=== PATIENT | male | born 1930 | race Caucasian/White ===

== ENCOUNTER 2017-09-27 06:17 | Day surgery (SDC) | payer OTHER ==
[2017-09-27 07:22] VITALS: BMI 24.5
[2017-09-27] MEDS ORDERED: LIDOCAINE 1%/EPI 1:100000 (20 ML MULTI DOSE VIAL) ONE (07:41)
[2017-09-27] MEDS ORDERED: PROPOFOL 20 ML ONE ×2 (08:14)
[2017-09-27] MEDS ORDERED: MIDAZOLAM HCL 2 MG/2 ML SINGLE DOSE VIAL ONE (08:14)
[2017-09-27] MEDS ORDERED: SUCCINYLCHOLINE CHLORIDE 200 MG/10 ML VIAL ONE (08:14)
[2017-09-27] MEDS ORDERED: ONDANSETRON 4 MG/2 ML VIAL ONE (08:24)
[2017-09-27] MEDS ORDERED: DEXAMETHASONE SOD PHOSPHATE 4 MG/1 ML VIAL ONE (08:24)
[2017-09-27] MEDS ORDERED: ceFAZolin SODIUM 1 GM VIAL ONE (08:24)
[2017-09-27] MEDS ORDERED: ONDANSETRON 4 MG/2 ML VIAL IVPUSH PRN ×2 (09:42→10:45)
[2017-09-27] MEDS ORDERED: oxyCODONE HCL 5 MG TABLET PO PRN (09:42)
[2017-09-27 10:04] VITALS: TEMP 97.7
[2017-09-27] MEDS ORDERED: KETOROLAC TROMETHAMINE 30 MG/1 ML VIAL IVPUSH PRN (10:45)
[2017-09-27] MEDS ORDERED: DEXTROSE 5%-0.45% SALINE 1,000 ML IV SCH (10:45)
[2017-09-27 11:00] VITALS: BP 134/67; PULSE 88
--- NOTE | 2017-09-27 19:23 | OP ---
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 PRIMARY SURGEON: Taisha Hernandez M.D. PHOTO EDITOR: Paul Douglass PROCEDURE: A radical soft tissue excision of part of patient's left ear and cartilage with a plastic surgery reconstruction of the left ear with a separate incisional biopsy of the right ear, again with the plastic surgery reconstruction of the right ear. PRIMARY SURGEON FOR EAR RECONSTRUCTION: Taisha Fine M.D., with his first beater, Hailey Bearden ANESTHESIA: Local with IV sedation. COMPLICATIONS: There were no complications. 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 At that time, he had a positive right axillary lymph node and underwent lymph node dissection with / positive nodes. He later developed a left chest wall recurrence and had undergone a left axillary lymph node dissection and incision of his left chest wall lesion, which was 2.1 cm. He has remained disease-free from the melanoma but did have prostate cancer as well as forehead basal cell carcinoma excised in 2009. He now presented with an ulcerating lesion in the left cartilaginous area of the left ear. Biopsy showed squamous cell carcinoma. There was also another suspicious lesion seen on the tip of the right ear. Radical wide excision of the left ear squamous cell carcinoma was recommended with a separate excisional biopsy of the right ear lesion. The patient was brought in for the procedure on September 27, 2017. In the holding area, site verification is made, and informed consent was obtained. He was brought into the operating room, laid on the OR table in the supine position. Venodynes were placed on the lower extremities. He received a gram of Ancef prior to incision. Both ears were sterilely prepped and draped in the usual fashion. The patient was given IV sedation. Then 1% lidocaine was given around the cartilaginous left ear, and a separate ring block was given around the left ear with a separate injection in the external canal to block the vagus nerve. A wedge resection widely around the ulcerating squamous cell carcinoma was then taken of the left ear with at least 1 cm margins around the squamous cell carcinoma grossly. The specimen was oriented with a long lateral, short superior suture. At this point, plastic surgery scrubbed in to perform the left ear reconstruction as I moved to the right side. On the right side, I excised a lesion probably only about 2 x 2 cm as a rectangular excision on the tip of the right ear, mainly just soft tissue all the way down to the cartilage, however. Again, hemostasis was achieved. The specimen was oriented with a long lateral, short superior suture, and sent to pathology as right ear excisional biopsy. A separate superolateral excision was undertaken. Such a lesion was felt to be close on that side, and that was oriented with a suture marking the biopsy cavity side. Hemostasis was achieved. This wound was left open for the plastic surgeon to reconstruct after he finishes the reconstruction on the left ear. Both reconstructions were performed primarily, and the patient tolerated the procedure well with minimal blood loss. The patient will be recovered postoperatively and discharged home the same day. He will follow up in the office in one week for formal wound pathology check. All sponge, needle counts are correct at the end of the case, and estimated blood loss was minimal. TAISHA HERNANDEZ M.D. [id number]
--- NOTE | 2017-09-28 06:55 | OP ---
DATE OF OPERATION: 09/27/2017 SURGEON: Taisha Fine MD CONSULTING PSYCHOLOGIST SURGEON: Zahra Rodríguez PA-C PREOPERATIVE DIAGNOSIS: Acquired deformity of head and neck, tumor extirpation, right and left ears. POSTOPERATIVE DIAGNOSIS: Acquired deformity of head and neck, tumor extirpation, right and left ears. OPERATIVE PROCEDURE: 1. Right ear reconstruction utilizing advanced flap closure. 2. Left total reconstruction of defect, left ear after large excisional extirpation. OPERATIVE INDICATIONS: The patient of Dr. Taisha Ferrari was brought to the operating room for surgical excision of a left ear rim and posterior aspect of the cartilage skin tumor. This required full-thickness excision of a large wedge of tissue on the left ear removing approximately more than 1/3 of the total volume of the ear. Reconstruction was planned, discussed with the patient preoperatively. He agreed to the planned procedure. The right ear also had a lesion along the pinna border, which was extirpated by Dr. Palencia and reconstruction with advancement flaps in a tubular fashion was carried out. OPERATIVE PROCEDURE IN DETAIL: Patient was take to the operating room by Dr. Palencia. A combined dictation was dictated with him. He will dictate the extirpation of the tumors bilaterally. The patient was placed on the operating room table in supine position, both arms were placed down to sides, and the entire head and neck region was prepped with ChloraPrep solution especially over both ears which showed the lesions. Local 1% lidocaine anesthesia was injected into the ear itself, and then, Dr. Palencia performed extirpation of the tumor with full-thickness excision of the ear on the left side of approximately 1/3 of the total volume and right side along the pinna border measuring approximately 4 cm in length. When the tumor excision was accomplished, I began my part of the procedure with a reconstruction. The left ear reconstruction required extensive debridement of cartilage with Burows triangles. The triangles were removed from the base of the ear cartilage in order to allow reconstruction. Hemostasis was meticulously obtained throughout, and the cartilage was then approximated using 4-0 chromic sutures in interrupted fashion from medial to lateral advancing the cartilage together on the left ear. The second closure of the skin and subcutaneous tissues with advancements and total reconstruction were carried out on both the anterior and posterior surfaces of the left ear in complex fashion. This layered closure was then accomplished, was closed with Dermabond and Steri-Strips, and attention was turned to the left ear. The tubular flap, both superiorly and inferiorly, were planned out on both sides of the defect, advanced, and closed upon themselves with multiple layers of sutures with 5-0 nylon and 5-0 plain catgut sutures. Good shape and contour was seen on both ears. The patient tolerated the procedure well. He was awakened and transferred to the recovery room in satisfactory condition. TAISHA FINE M.D. CLOVIS/[id number]
--- NOTE | 2017-10-02 14:04 | PATH ---
Surgical Pathology Report Patient Name: WANDA CRUZ [facility]. Rec. #: [id number] /Age/Gender: 1930 (Age: 86) / M Account: [id number] Location: [facility] AMBULATORY Taken: 09/27/2017 Received: 09/27/2017 Reported: 10/02/2017 Physicians: Je Palencia M.D. Specimen(s) Received A: LEFT EAR EXCISION B: RIGHT EAR EXCISIONAL BIOPSY C: RIGHT EAR SUPERIOR MARGIN Clinical History Left ear squamous cell carcinoma, right ear lesion Final Diagnosis A. EAR, LEFT, EXCISION: SQUAMOUS CELL CARCINOMA, MODERATELY DIFFERENTIATED WITH EXTENSIVE ULCERATION. CARCINOMA MEASURES 1.7 CM IN GREATEST HORIZONTAL EXTENT (GROSS MEASUREMENT) WITH A MAXIMAL THICKNESS OF UP TO 0.5 CM. SURGICAL MARGINS ARE UNINVOLVED BY CARCINOMA; CARCINOMA IS AT 3 MM FROM THE CLOSEST (SUPERIOR) MARGIN. CARCINOMA ABUTS CARTILAGE BUT DOES NOT INVADE CARTILAGE (IN THE MAIN SPECIMEN); SEPARATE ADDITIONAL PORTIONS OF CARTILAGE WITH NO PATHOLOGIC FINDINGS. NO LYMPHOVASCULAR INVASION IS IDENTIFIED. PERINEURAL INVASION IS IDENTIFIED. B. EAR, RIGHT, EXCISIONAL BIOPSY: SQUAMOUS CELL CARCINOMA, MODERATELY DIFFERENTIATED, EXTENDING TO THE DEEP TRANSECTED TISSUE MARGIN AND FOCALLY CLOSE (< 1 MM) THE SUPERIOR MARGIN. NO LYMPHOVASCULAR INVASION IS IDENTIFIED. C. EAR, RIGHT, SUPERIOR LATERAL MARGIN, EXCISION: SQUAMOUS CELL CARCINOMA, MODERATELY DIFFERENTIATED, EXTENDING TO THE NEW INKED MARGIN. Electronically Signed Renee Regalado M.D. Gross Description A. Received in formalin labeled "left ear excision," is a 3.0 x 3.0 x 0.6 cm triangular ear excision with a short suture marking the superior margin and a long suture marking the lateral aspect of the specimen, per the surgeon. The epidermal surface displays a 1.7 x 1.6 cm ulcerated lesion at 0.4 cm from the superior margin and 0.7 cm from the opposing margin. The superior margin is inked blue and the opposing margin is inked red. Also received is of the same container are 2 preciado, irregular, unoriented portions of cartilage measuring 0.5 x 0.3 x 0.1 cm and 1.1 x 0.3 x 0.1 cm. Metal Sander sections are submitted in 6 cassettes as follows: 1-3-lesion to superior margin; 4-5-lesion to opposing margin; 6-separately received undesignated portions of tissue. B. Received in formalin labeled "right ear excisional biopsy," is a 1.2 x 1.0 x 0.2 cm preciado, irregular portion of skin with a short suture marking the superior aspect and a long suture marking the lateral aspect of the specimen, per the surgeon. The specimen is inked as follows: superior , blue; inferior, green; lateral ,red; medial yellow; transected deep margin, black. The specimen is serially sectioned from superior to inferior. The specimen is entirely and sequentially submitted in 4 cassettes with the superior margin in cassette 1 and the inferior margin in cassette 4. C. Received in formalin labeled "right ear superior lateral margin," is a 1.0 x 0.3 x 0.1 cm preciado, irregular portion of skin with a suture marking the biopsy cavity side, per the surgeon. The new margin is inked blue and the specimen is serially sectioned. The specimen is entirely submitted in one cassette. 09/28/201709/28/2017
== END 2017-09-27 10:50 | disposition home or self-care (01) ==
LOC: FASU 06:17
PROVIDERS: ATTEND Surgery Surgical Oncology
PROC: 09B Ear, Nose, Sinus, Excision (ICD-10-PCS; 2017-09-27)
PROC: 0HX3XZZ Transfer Left Ear Skin, External Approach (ICD-10-PCS; 2017-09-27)
PROC: 0JX10ZB Transfer Face Subcutaneous Tissue and Fascia with Skin and Subcutaneous Tissue, Open Approach (ICD-10-PCS; principal; 2017-09-27 08:33)
PROC: 09B10ZX Excision of Left External Ear, Open Approach, Diagnostic (ICD-10-PCS; 2017-09-27 08:33)
DX: C44.229 Squamous cell carcinoma of skin of left ear and external auricular canal (principal); C44.222 Squamous cell carcinoma of skin of right ear and external auricular canal; H61.113 Acquired deformity of pinna, bilateral; Z85.46 Personal history of malignant neoplasm of prostate; Z85.820 Personal history of malignant melanoma of skin; Z85.828 Personal history of other malignant neoplasm of skin
CPT/HCPCS: 88305-TC; 88307-TC

== ENCOUNTER 2018-01-17 10:42 | Day surgery (SDC) | payer OTHER ==
[2018-01-10 12:23] VITALS: BMI 24.5
--- NOTE | 2018-01-15 11:26 | HP ---
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 In August 2017 , patient underwent excision of bilateral ear lesions that were c/w squamous cell. The left WE was c/w negative surgical margins and the right showed extension to the deep transected margin and 1 mm to the superior margin. Patient is now presenting for reexcision of positive margin with reconstruction. History Source: Patient Limitations to Obtaining History: No Limitations - Past Medical History Cardiovascular: Yes: AFIB, HTN Pulmonary: Yes: Pneumonia Renal/: Yes: Cancer Heme/Onc: Yes: Cancer (malignant melanoma 1999 and 2003. prostate cancer basal cell of forehead 2009 squamous cell of left ear 05/2017 squamous cell of right ear 08/2017) - Past Surgical History Additional Past Surgical History: WE of malignant melanoma with bilateral SNBx of axilla and right axillary LN dissection.(1999) Left axillary LN dissection 11/2003 Left axillary chest wall excision 06/2004. Excision of basal cell from forehead 2009 WE of left ear (squamous cell 08/2017) Right exc bx (squamous cell with positive margins 08/2017) - Smoking History Smoking history: Former smoker Have you smoked in the past 12 months: No Aproximately how many cigarettes per day: 40 If you are a former smoker, when did you quit?: AGE 31 - Alcohol/Substance Use Hx Alcohol Use: No Home Medications - Allergies Allergies/Adverse Reactions: Allergies Allergy/AdvReac Type Severity Reaction Status Date / Time No Known Allergies Allergy Verified 01/10/18 12:14 - Home Medications Home Medications: Ambulatory Orders Apixaban [Eliquis] 5 mg PO BID 09/03/17 Family Disease History - Family Disease History Family Disease History: CA: Brother (prostate and laryngeal cancer) Review of Systems - Review of Systems Constitutional: reports: No Symptoms Cardiovascular: reports: No Symptoms Respiratory: reports: No Symptoms Physical Examination Constitutional: Yes: Well Nourished, Calm HENT: Yes: Other (Ears with well healed incisions without discharge or erythema) Problem List - Problems (1) Squamous cell carcinoma of right ear Code(s): C44.222 - SQUAMOUS CELL CARCINOMA SKIN/ R EAR AND EXTERNAL AURIC CANAL Assessment/Plan Plan: Wide excision of right ear with reconstruction
[2018-01-17] MEDS ORDERED: ONDANSETRON 4 MG/2 ML VIAL IVPUSH PRN (11:15)
[2018-01-17] MEDS ORDERED: DEXTROSE 5%-0.45% SALINE 1,000 ML IV SCH (11:15)
[2018-01-17] MEDS ORDERED: KETOROLAC TROMETHAMINE 30 MG/1 ML VIAL IVPUSH ONE (11:15)
[2018-01-17] MEDS ORDERED: MIDAZOLAM HCL 2 MG/2 ML SINGLE DOSE VIAL ONE (13:05)
[2018-01-17] MEDS ORDERED: LIDOCAINE 1%/EPI 1:100000 (20 ML MULTI DOSE VIAL) ONE (13:12)
[2018-01-17] MEDS ORDERED: ONDANSETRON 4 MG/2 ML VIAL ONE (13:28)
[2018-01-17] MEDS ORDERED: BACITRACIN 3.5 GM OPTHALMIC OINT TUBE ONE (13:37)
[2018-01-17 14:10] VITALS: TEMP 97.8
--- NOTE | 2018-01-17 15:04 | OP ---
DATE OF OPERATION: 01/17/2018 SURGEON: Taisha Fine MD MANAGER TRANSPORT SURGEON: Taisha Palencia MD PREOPERATIVE DIAGNOSIS: Acquired right ear deformity status post excision of squamous cell carcinoma, right ear. POSTOPERATIVE DIAGNOSIS: Acquired right ear deformity status post excision of squamous cell carcinoma, right ear. OPERATIVE PROCEDURE: Complex repair and reconstruction of the right ear after large wedge excision of squamous cell carcinoma, right ear. OPERATIVE INDICATION: The patient is an 87-year-old man who was brought to the operating room by Dr. Taisha Palencia for surgical extirpation of a squamous cell carcinoma of the right ear. A lesion was seen in the upper third border of the rim of the right ear, extending down to the cartilage area and needed to be re-excised from previous removals. A large wedge resection was planned and carried out. After the patient was prepped and draped in the usual fashion for ear surgery, 1% local lidocaine anesthesia with 1:100,000 epinephrine was injected into the tissues of the ear resection itself and along the anterior and posterior border of the ear as well as the wesly. At this point, Dr. Taisha Palencia performed a wedge excision of a large section of the mid-portion of the right pinna, down through skin, through the subcutaneous tissue, down to the underlying cartilage, and full-thickness anterior, posterior and cartilage were removed and sent for pathologic diagnosis. Upon completing the resection, I began my portion of the operation. At this point, a complex reconstruction was carried out. Using sharp dissection, the cartilage at the base of the wound, two Burow triangles were removed in the cartilage in order to correct the ear deformity, and then, an advancement closure was carried out in multiple layers. The tissues were advanced upon themselves, and using 4-0 chromic sutures in an interrupted fashion, the cartilage on the upper and lower borders of the pie-shaped wedge were reapproximated from the head towards the exterior and posterior part of the ear. Multiple sutures were placed to approximate the cartilage, and then, the posterior surface of the skin and subcutaneous tissue, after hemostasis, was also closed. Because of the patient's advanced age, 5-0 plain catgut suture was used for the skin and subcutaneous tissue. Multiple sutures were placed into the borders of the ear for alignment, and then, a running 5-0 catgut suture was run along the posterior edge of the ear itself. Anteriorly, the skin and subcutaneous tissue were advanced and closed upon itself using 5-0 plain catgut sutures in an interrupted fashion. Multiple sutures were placed under optical magnification of 2.5 power to realign the cartilage and skin on both sides of the ear. After cleaning the wound, Dermabond and Steri-Strips dressing were placed over the ear itself, and good shape and contour were seen with no evidence of bleeding at this point. He tolerated the procedure well. He went to the recovery area in satisfactory condition and tolerated the procedure well. TAISHA FINE M.D. CLOVIS/[id number]
[2018-01-17 15:29] VITALS: BP 124/76; PULSE 82
--- NOTE | 2018-01-17 19:33 | OP ---
DATE OF OPERATION: 01/17/2018 PREOPERATIVE DIAGNOSIS: Right ear squamous cell carcinoma. POSTOPERATIVE DIAGNOSIS: Right ear squamous cell carcinoma. PROCEDURE: Wide malignant excision of right external ear with reconstruction by plastic surgery. PRIMARY SURGEON: Taisha Palencia MD Primary surgeon for the ear reconstruction is Dr. Taisha Fine. ANESTHESIA: Local with IV sedation. There were no complications. Briefly, the patient is an 87-year-old white male who has a history of a malignant melanoma of the chest wall, which I excised back in July of 2000, at which time he had positive nodes in the right axillary region and underwent a node dissection with 1 out of 13 positive nodes. He was on a vaccine trial for about a year, then developed the left axillary disease and underwent a chest wall excision and axillary dissection on the left side in 2003. He then had prostate cancer. I excised the forehead basal cell carcinoma in 2001. He then developed an ulcerating squamous cell cancer of the left external ear, which I excised in August 2017 with an ear reconstruction and margins were negative. At the same time I biopsied a right ear lesion, which turned out to be a squamous cell carcinoma on the right side but margins are positive. We waited for this to heal and he now comes in for formal wide malignant soft tissue excision of the right ear with reconstruction. The patient was brought in to Ambulatory Surgery on January 17, 2018. Site verification was made and informed consent was signed prior to coming into the operating room. He was brought in to the operating room and laid on the OR table in the supine position. He was given IV sedation and the right ear was sterilely prepped and draped in the usual fashion. We gave him local anesthesia with a complete ear block, which was done by Plastic Surgery, and then a block of the sensory branches of the vagal nerve as well as. At this point, with a history of a malignant melanoma of the chest wall, which I excised back in July of 2000, at which time he had positive nodes in the right axillary region and underwent a node dissection with 1 out of 13 positive nodes. He was on a vaccine trial for about a year, then developed some left axillary disease and underwent a chest wall excision and axillary dissection on the left side in 2003. He then had prostate cancer. I excised the forehead basal cell carcinoma in 2001. He then developed an ulcerating squamous cell cancer of the left external ear, which I excised in August 2017, with an ear reconstruction, and margins were negative. At the same time, I biopsied a right ear lesion, which turned out to be a squamous cell carcinoma on the right side but margins are positive. We waited for this to heal and he now comes in for formal wide malignant soft tissue excision of the right ear with reconstruction. The patient was brought in to Ambulatory Surgery on January 17, 2018. Site verification was made and informed consent was signed prior to coming to the operating room. He was brought in to the operating room and laid on the OR table in the supine position. He was given IV sedation and the right ear was sterilely prepped and draped in the usual fashion. We gave him local anesthesia with a complete ear block, which was done by Plastic Surgery, and then a block of the sensory branches of the vagal nerve as well. At this point, a wedge resection was undertaken if the ear, extending away from the previous biopsy site of the squamous cell carcinoma. This was extended deep into the cartilage of the ear. The specimen was oriented with a long lateral, short superior suture, and sent to Pathology in formalin. At this point, Dr. Fine performed the ear reconstruction, which will be dictated separately. Hemostasis was achieved using electrocautery. The patient tolerated the procedure well without difficulty and was awake and alert and brought back up to ambulatory surgery postoperatively, where he will be discharged home once discharge criteria are met. Estimated blood loss was minimal and all sponge and needle counts were correct at the end of the case. The patient was advised to follow up in the office in about 1 to 2 weeks for a formal wound pathology check. TAISHA PALENCIA M.D. [id number]
--- NOTE | 2018-01-21 13:42 | PATH ---
Surgical Pathology Report Patient Name: WANDA CRUZ [facility]. Rec. #: [id number] /Age/Gender: 1930 (Age: 87) / M Account: [id number] Location: [facility] AMBULATORY Taken: 01/18/2018 Received: 01/18/2018 Reported: 01/21/2018 Physicians: Je Palencia M.D. Specimen(s) Received RIGHT EAR EXCISION Clinical History Squamous cell carcinoma right ear Final Diagnosis RIGHT EAR, REEXCISION: CHANGES CONSISTENT WITH PRIOR EXCISION SITE, ALONG WITH EXTENSIVE SOLAR ELASTOSIS. NO RESIDUAL SQUAMOUS CELL CARCINOMA IDENTIFIED. SMALL BENIGN EPIDERMAL INCLUSION CYST PRESENT. Comment: Also see prior specimen [id number]. Electronically Signed Aldo Davison M.D. Gross Description Received in formalin labeled "reexcision right ear," is a 2.1 x 2.0 x 0.7 cm triangular skin excision with a short suture marking the superior aspect and a long suture marking the lateral aspect of the specimen, per the surgeon. There is skin present on the anterior, lateral and deep surfaces of the specimen. The epidermal surface displays an ill-defined 1.2 x 0.9 cm depressed lesion on the anterior surface, involving the lateral fold of skin. The lesion is grossly 0.4 cm from the superior margin and 0.6 cm from the inferior margin. The superior margin is inked blue, the inferior margin is inked green and the medial tip is inked red. The specimen is serially sectioned from medial to lateral. The specimen is entirely submitted in 5 cassettes as follows: 1-medial tip; 2-4-central portion of specimen sequentially submitted from medial to lateral; 5-lateral edge of specimen. 01/18/[address] [facility]01/18/2018
== END 2018-01-17 15:15 | disposition home or self-care (01) ==
LOC: FASU 10:42
PROVIDERS: ATTEND Surgery Surgical Oncology
PROC: 0HB2XZZ Excision of Right Ear Skin, External Approach (ICD-10-PCS; principal; 2018-01-17 13:19)
PROC: 0HX2XZZ Transfer Right Ear Skin, External Approach (ICD-10-PCS; 2018-01-17 13:19)
DX: C44.222 Squamous cell carcinoma of skin of right ear and external auricular canal (principal); H61.111 Acquired deformity of pinna, right ear
CPT/HCPCS: 88305-TC